=== PATIENT | female | born 1960 | race Hispanic/Latino ===

== ENCOUNTER 2018-04-16 10:43 | Emergency (ER) | payer SELFPAY ==
[2018-04-16 12:09] LABS: #Eosinphils 0.1 thou/uL (0.0-0.7); #Lymphocytes 1.6 thou/uL (1.20-3.40); #Monocytes 0.3 thou/uL (0.11-0.59); %Basophils 0.5 % (0.0-1.0); %Lymphocytes 31.1 % (21.0-51.0); %Monocytes 5.5 % (0.0-10.0); %Neutrophils 59.9 % (42.0-75.0); Hemoglobin 8.8 g/dL (12.0-16.0); Mean Corpuscular HGB CONC 31.6 g/dL (32.0-36.0); Mean Corpuscular Hemoglobin 30.8 pg (27.0-31.0); Mean Corpuscular Volume 97.5 fL (78.0-98.0); Mean Platelet Volume 7.1 fL (7.4-10.4); Platelet Count 155 thou/uL (130-400); RBC Distribution Width 13.3 % (11.5-14.5); Red Blood Cell (RBC) Count 2.85 mill/uL (4.20-5.40)
[2018-04-16 12:26] LABS: CKMB 1.8 ng/mL (0-6.6); Troponin I Less than 0.010 ng/mL (< 0.028)
[2018-04-16 12:30] LABS: ALT (SGPT) 8 U/L (8-55); AST (SGOT) 12 U/L (5-34); Albumin 3.7 g/dL (3.5-5.0); Alkaline Phosphatase 84 U/L (40-150); Anion Gap 15 mmol/L (10-20); BUN (Urea Nitrogen) 45 mg/dL (9.8-20.1); Bilirubin, Total 0.4 mg/dL (0.2-1.2); Calc. Creatinine Clearance 0 mL/min (70-130); Calcium 9.2 mg/dL (7.8-10.44); Carbon Dioxide 20 mmol/L (22-29); Chloride 113 mmol/L (98-107); Estimated GFR-MDRD 15; Glucose 150 mg/dL (70-105); Potassium 4.6 mmol/L (3.5-5.1); Protein, Total 6.7 g/dL (6.0-8.3); Sodium 143 mmol/L (136-145)
--- NOTE | 2018-04-16 12:51 | RAD ---
PORTABLE CHEST: History: Dyspnea. FINDINGS: Heart size is within normal limits. Right sided HemoSplit catheter is present. Increased density over the right chest is probably related to overlying soft tissue and related to the portable technique. IMPRESSION: Increased density over the right mid to lower lung field is felt to be related to overlying soft tiss ue. PA and lateral chest film would be helpful in confirming that there is no infiltrative process. POS: TL
== END 2018-04-16 14:30 | disposition home or self-care (01) ==
LOC: NAV ERS 10:43
DX: J45.901 Unspecified asthma with (acute) exacerbation (principal); I12.9 Hypertensive chronic kidney disease with stage 1 through stage 4 chronic kidney disease, or unspecified chronic kidney disease; N18.9 Chronic kidney disease, unspecified; Z76.0 Encounter for issue of repeat prescription; E11.40 Type 2 diabetes mellitus with diabetic neuropathy, unspecified; K21.9 Gastro-esophageal reflux disease without esophagitis; I10 Essential (primary) hypertension; F41.9 Anxiety disorder, unspecified; F17.210 Nicotine dependence, cigarettes, uncomplicated; Z79.899 Other long term (current) drug therapy
CPT/HCPCS: 71045; 80053; 82553; 83880; 84484; 85025; 93005; J7620

== ENCOUNTER 2019-08-29 12:37 | Emergency (ER) | payer SELFPAY ==
[2019-08-29] MEDS ORDERED: methylPREDNISolone Sod Succ/PF 125 MG/2 ML VIAL ONE (12:56)
[2019-08-29] MEDS ORDERED: Albuterol Sulfate 2.5 mg/0.5 ml Neb ONE (13:14)
[2019-08-29] MEDS ORDERED: Sodium Chloride For Inhalation 0.9% 3 ML NEB ONE (13:14)
[2019-08-29 13:38] LABS: #Basophils 0.1 thou/uL (0.0-0.2); #Eosinphils 0.1 thou/uL (0.0-0.7); #Lymphocytes 1.4 thou/uL (1.20-3.40); #Monocytes 0.4 thou/uL (0.11-0.59); #Neutrophils 6.4 thou/uL (1.40-6.50); %Basophils 0.6 % (0.0-1.0); %Eosinophils 1.4 % (0.0-10.0); %Monocytes 4.4 % (0.0-10.0); %Neutrophils 76.6 % (42.0-75.0); Hemoglobin 11.1 g/dL (12.0-16.0); Mean Corpuscular HGB CONC 32.7 g/dL (32.0-36.0); Mean Corpuscular Hemoglobin 29.4 pg (27.0-31.0); Mean Corpuscular Volume 89.9 fL (78.0-98.0); Mean Platelet Volume 9.9 fL (7.4-10.4); Platelet Count 152 thou/uL (130-400); RBC Distribution Width 12.7 % (11.5-14.5); Red Blood Cell (RBC) Count 3.76 mill/uL (4.20-5.40); White Blood Cell (WBC) Count 8.3 thou/uL (4.8-10.8)
[2019-08-29 13:51] LABS: ALT (SGPT) 11 U/L (8-55); AST (SGOT) 14 U/L (5-34); Alkaline Phosphatase 239 U/L (40-110); Anion Gap 20 mmol/L (10-20); BUN (Urea Nitrogen) 70 mg/dL (9.8-20.1); Bilirubin, Total 0.3 mg/dL (0.2-1.2); Calc. Creatinine Clearance 0 mL/min (70-130); Calcium 8.6 mg/dL (7.8-10.44); Carbon Dioxide 16 mmol/L (22-29); Chloride 108 mmol/L (98-107); Estimated GFR-MDRD 11; Glucose 341 mg/dL (70-105); Sodium 139 mmol/L (136-145)
[2019-08-29] MEDS ORDERED: Tranexamic Acid 1,000 MG/10 ML VIAL ONE (13:55)
[2019-08-29] MEDS ORDERED: Sodium Chloride 0.9% 0 ML ONE (13:58)
== END 2019-08-29 14:15 | disposition short-term general hospital (02) ==
LOC: NAV ERS 12:37
DX: T78.3XXA Angioneurotic edema, initial encounter (principal); J44.9 Chronic obstructive pulmonary disease, unspecified; E11.40 Type 2 diabetes mellitus with diabetic neuropathy, unspecified; K21.9 Gastro-esophageal reflux disease without esophagitis; I10 Essential (primary) hypertension; M06.9 Rheumatoid arthritis, unspecified; F41.9 Anxiety disorder, unspecified; F32.9 Major depressive disorder, single episode, unspecified; F17.210 Nicotine dependence, cigarettes, uncomplicated; Z79.84 Long term (current) use of oral hypoglycemic drugs; Z79.899 Other long term (current) drug therapy
CPT/HCPCS: 80053; 85025; 96365; 96375; J2930; J3490; J7611; J7620

== ENCOUNTER 2022-10-22 15:03 | Emergency (ER) | payer OTHER ==
[2022-10-22] MEDS ORDERED: Ipratropium/Albuterol 3 ML NEB ONE ×2 (15:38→18:37)
[2022-10-22 16:50] LABS: Base Excess-Venous -1.6 mmol/L (-2.0 to 3.0); Bicarbonate (HCO3v) 22.2 mmol/L (22.0-28.0); Calcium, Ionized 0.91 mmol/L (1.15-1.33); Chloride 105 mmol/L (98-107); Hemoglobin - Calc 13.1 g/dL (12.0-16.0); Potassium 4.9 mmol/L (3.5-5.1); Sodium 136 mmol/L (138-145); T. Carbon Dioxide 23.3 mmol/L (22.0-28.0); vO2 Saturation-calc 99.7 % (60.0-85.0)
[2022-10-22 17:06] LABS: #Eosinphils 0.1 thou/uL (0.0-0.7); #Monocytes 0.4 thou/uL (0.11-0.59); #Neutrophils 5.6 thou/uL (1.40-6.50); %Basophils 0.5 % (0.0-1.0); %Eosinophils 1.7 % (0.0-10.0); %Lymphocytes 14.4 % (21.0-51.0); %Neutrophils 77.5 % (42.0-75.0); Mean Corpuscular HGB CONC 29.9 g/dL (32.0-36.0); Platelet Count 169 10x3/uL (130-400); RBC Distribution Width 16.2 % (11.5-14.5); Red Blood Cell (RBC) Count 3.86 mill/uL (4.20-5.40); White Blood Cell (WBC) Count 7.2 10x3/uL (4.8-10.8)
[2022-10-22 17:23] LABS: ALT (SGPT) 29 U/L (8-55); AST (SGOT) 27 U/L (5-34); Albumin 4.1 g/dL (3.4-4.8); Alkaline Phosphatase 108 U/L (40-110); Anion Gap 25 mmol/L (10-20); BUN (Urea Nitrogen) 74 mg/dL (9.8-20.1); Bilirubin, Total 0.4 mg/dL (0.2-1.2); Calc. Creatinine Clearance 0 mL/min (70-130); Calcium 9.3 mg/dL (7.8-10.44); Carbon Dioxide 22 mmol/L (23-31); Chloride 100 mmol/L (98-107); Estimated GFR 4; Globulin 2.9 g/dL (2.4-3.5); Glucose 133 mg/dL (80-115); Potassium 5.3 mmol/L (3.5-5.1); Sodium 142 mmol/L (136-145)
[2022-10-22] MEDS ORDERED: Furosemide 40 MG/4 ML VIAL ONE (17:25)
[2022-10-22 17:40] LABS: CKMB 3.9 ng/mL (0-6.6)
== END 2022-10-22 20:13 | disposition left against medical advice (07) ==
LOC: NAV ERS 15:03
DX: I13.0 Hypertensive heart and chronic kidney disease with heart failure and stage 1 through stage 4 chronic kidney disease, or unspecified chronic kidney disease (principal); E11.22 Type 2 diabetes mellitus with diabetic chronic kidney disease; N18.9 Chronic kidney disease, unspecified; I50.9 Heart failure, unspecified; E11.40 Type 2 diabetes mellitus with diabetic neuropathy, unspecified; F17.210 Nicotine dependence, cigarettes, uncomplicated; K21.9 Gastro-esophageal reflux disease without esophagitis; M06.9 Rheumatoid arthritis, unspecified; Z79.899 Other long term (current) drug therapy; Z79.84 Long term (current) use of oral hypoglycemic drugs; Z99.2 Dependence on renal dialysis
CPT/HCPCS: 36415; 71045; 80053; 82330; 82553; 82803; 83605; 83880; 84443; 84484; 85025; 85379; 93005; 94640; 94760; 96374; J1940; J7620